=== PATIENT | female | born 1940 | race Caucasian/White ===

== ENCOUNTER 2016-11-16 15:53 | Emergency (ER) | payer MEDICARE, BC ==
[~2016-11-16 15:53] MED LIST: ASAB PO; ATACAND32 MG PO; COQ10100 MG OR; COUMADIN4 MG; COZ50 PO; EFFEXXR75 PO; GLUCOPHXR PO; GLUCPH PO; LIPITOR20 PO; MULTIPLE VIT PO; NASONEX NAS; OS500+D PO; PERCOCET1 TA4; PLAVIX PO; PRILO PO; PROBIOTIC PO; PROTONIX PO; RANITIDINE300 MG PO; SYN1 PO; SYN125 PO; TOPXL50 PO; TOVIAZ4 MG PO; TRICOR48 PO
[2016-11-16 16:21] LABS: ASCORBIC ACID (UR NOT ORDER) NEG (NEG); BASOPHILS 0.6 %; BASOPHILS ABSOLUTE 0.06 10/3/uL (0.0-0.16); BILIRUBIN, URINE NEGATIVE (NEG); EOSINOPHILS 3.3 %; EOSINOPHILS ABSOLUTE 0.36 10/3/uL (0.0-0.53); ER URINALYSIS TAT 0 Hrs 10 Mins; HEMATOCRIT 39.1 % (36.0-48.0); HEMOGLOBIN 13.4 g/dL (12.0-16.0); IMMATURE GRANULOCYTES 0.2 %; IMMATURE GRANULOCYTES ABSOLUTE 0.02 10/3/uL (0.0-0.11); KETONE, URINE NEGATIVE (NEG); LEUKOCYTE ESTERASE(NOT OR NEG (NEG); LYMPHOCYTES 24.5 %; LYMPHOCYTES ABSOLUTE 2.67 10/3/uL (0.67-4.30); MEAN CORPUS HGB CONC 34.3 g/dL (32.0-36.0); MEAN CORPUSCULAR HEMOGLOB 29.2 pg (26.0-34.0); MEAN PLATELET VOLUME 10.1 fL (9.2-13.0); MONOCYTES 6.6 %; MONOCYTES ABSOLUTE 0.72 10/3/uL (0.21-1.20); NEUTROPHILS 64.8 %; NEUTROPHILS ABSOLUTE 7.05 10/3/uL (2.02-8.40); NITRITE (URINE) NEG (NEG); PLATELET COUNT 280 10/3/uL (150-400); RED CELL COUNT 4.59 10/6/uL (4.0-5.6); WBC (NOT ORDERED) (RFLEX) < 1 (0-5)
[2016-11-16 16:22] LABS: ER CBC TAT 0 Hrs 11 Mins; MANUAL DIFF NO %; MEAN CORPUSCULAR VOLUME 85.2 fL (80-100); RBC DISTRIBUTION WIDTH 13.1 % (12.0-16.0); WHITE BLOOD CELLS 10.9 10/3/uL (4.5-10.5)
[2016-11-16 16:36] LABS: A/G RATIO 0.9 (0.7-1.9); ALBUMIN 3.7 G/DL (3.5-5.0); ALKALINE PHOSPHATASE 106 U/L (45-117); BUN (BLOOD UREA NITROGEN) 11 MG/DL (6-23); CALCIUM, SERUM 9.5 MG/DL (8.5-10.4); CHLORIDE, SERUM 105 MMOL/L (96-112); CREATININE 1.07 MG/DL (0.55-1.02); GFR AFRICAN AMERICAN 59 ML/MIN (>=60); GFR NON AFRICAN AMERICAN 51 ML/MIN (>=60); GLUCOSE, SERUM 105 MG/DL (60-99); POTASSIUM, SERUM 4.1 MMOL/L (3.5-5.3); SGOT(AST) 25 U/L (5-40); SGPT(ALT) 25 U/L (5-65); SODIUM, SERUM 140 MMOL/L (135-148); TOTAL BILIRUBIN 0.4 MG/DL (0-1.2); TOTAL PROTEIN 7.7 G/DL (6.0-8.5)
[2016-11-16 16:37] LABS: CO2 (CARBON DIOXIDE) 30 MMOL/L (24-34)
[2017-03-01] MEDS ORDERED: DITRO5 PO (14:49)
[2017-03-01] MEDS ORDERED: K250 PO (14:51)
[2017-03-01] MEDS ORDERED: ULTRAM50 (14:52)
[2017-03-01] MEDS ORDERED: VITAMIN D31000 UNIT PO (14:54)
== END 2016-11-16 21:31 | disposition home or self-care (01) ==
LOC: ER 15:53
PROVIDERS: Hospitalist
DX: K57.32 Diverticulitis of large intestine without perforation or abscess without bleeding (principal); Z91.041 Radiographic dye allergy status; Z88.0 Allergy status to penicillin; Z88.2 Allergy status to sulfonamides; Z88.1 Allergy status to other antibiotic agents; Z79.82 Long term (current) use of aspirin; Z79.01 Long term (current) use of anticoagulants; Z79.899 Other long term (current) drug therapy; Z79.84 Long term (current) use of oral hypoglycemic drugs
CPT/HCPCS: 74176; 80053; 81001; 83690; 85025; 96372; 99284; A9270-GY; J2405